=== PATIENT | male | born 1985 | race African-American/Black ===

== ENCOUNTER 2020-08-18 11:00 | Emergency (ER) | payer SELFPAY ==
[2020-08-18 11:22] VITALS: BP 142/103; PULSE 81; RESP 18; TEMP 36.8; O2SAT 100
[2020-08-18 11:37] VITALS: BP 144/97; PULSE 79; RESP 18; TEMP 36.9; O2SAT 100
--- NOTE | 2020-08-18 12:38 | ED.GENADULT ---
HPI - General Adult General Chief complaint: Eye Problems Stated complaint: Bump Above Left Eye Time Seen by Provider: 08/18/20 11:53 History of Present Illness HPI narrative: Patient is a 34-year-old male who presents to the ER with swelling above his left eye. Noticed a small nodule about 3 days ago. Today it significantly increased in size. No drainage or redness or fever. It does not affect his ability to see. No eye pain. Related Data Allergies Allergy/AdvReac Type Severity Reaction Status Date / Time mushroom Allergy Swelling Verified 08/18/20 11:45 of Lip/Tongue/Throat Review of Systems Constitutional: Constitutional: Denies chills and Denies fever(s) Eyes: Eyes: Denies change in vision and Denies photophobia Comments: Swelling over the supraorbital ridge. Integumentary/Breasts: Skin/Breast: Denies pruritus, Denies erythema and Denies rash PMFSH Past Medical History Medical History (Updated 08/18/20 @ 12:42 by Campbell Mooney MD) Healthy adult male Surgical History Surgical History (Updated 08/18/20 @ 12:40 by Campbell Mooney MD) No history of previous surgery Exam Narrative: Exam Narrative: GENERAL: Well-appearing, well-nourished, and in no acute distress. HEAD: Normocephalic, atraumatic. EYES: PERRL and EOMI. 1.5 cm diameter cystic lesion over the left lateral supraorbital ridge. NEURO: Alert and oriented x3. PSYCH: Normal mood and affect. Course Course Emergency Course: Discussed topical antibiotics for home. Not amenable to packing due to small incision that was planned for cosmetic reasons. Vital Signs Vital signs: Vital Signs Temperature 98.2 F 08/18/20 11:22 Pulse Rate 81 08/18/20 11:22 Respiratory Rate 18 08/18/20 11:22 Blood Pressure 142/103 H 08/18/20 11:22 Pulse Oximetry 100 08/18/20 11:22 Temperature 98.4 F 08/18/20 11:37 Pulse Rate 79 08/18/20 11:37 Respiratory Rate 18 08/18/20 11:37 Blood Pressure 144/97 H 08/18/20 11:37 Pulse Oximetry 100 08/18/20 11:37 Procedures Abscess I/D face: Date of Incision: 08/18/20 Time of Incision: 12:30 Side (if applicable): left Local Anesthetic: lidocaine 1% and with epi Amount of anesthesia used (mL): 1 Technique: incised with #11 blade Irrigation: No Packing used?: none I&D Results: Other (Cystic material) Medical Decision Making Vital Signs Vital Signs: Vital Signs Temperature 98.2 F 08/18/20 11:22 Pulse Rate 81 08/18/20 11:22 Respiratory Rate 18 08/18/20 11:22 Blood Pressure 142/103 H 08/18/20 11:22 Pulse Oximetry 100 08/18/20 11:22 Temperature 98.4 F 08/18/20 11:37 Pulse Rate 79 08/18/20 11:37 Respiratory Rate 18 08/18/20 11:37 Blood Pressure 144/97 H 08/18/20 11:37 Pulse Oximetry 100 08/18/20 11:37 Discharge Plan Discharge Clinical Impression: Cyst Patient Disposition: Home, Self-Care Condition: Stable Instructions: Cyst (ED), Abscess Incision and Drainage (DC) Additional Instructions: You had a sebaceous cyst drained from over your left eyebrow. If the area becomes red and hot, it is draining pus, you have fever over 100.4 ?F return to the ER. Additionally return the ER if you cannot see, you have severe eye pain, or have other concerns. If your cyst reoccurs you may need to see a plastic surgeon for further evaluation. Follow-up/Referrals: Chavez Ivory MD [Physician] - 1 Week PHYSICIAN,[employer] [Primary Care Provider] -
[2020-08-18] MEDS: LIDO 1%/EPINEPHRINE 1:100,000 20 ML VIAL INFILTRATE (12:55)
== END 2020-08-18 12:59 | disposition home or self-care (01) ==
PROVIDERS: Emergency Provider Emergency Medicine
DX: L72.9 Follicular cyst of the skin and subcutaneous tissue, unspecified (principal)
CPT/HCPCS: 10060; 99282